=== PATIENT | male | born 1975 | race Caucasian/White ===

== ENCOUNTER 2025-05-14 18:13 | Emergency (ER) | payer BC, SELFPAY ==
[2025-05-14 18:14] VITALS: BMI 27.3
--- NOTE | 2025-05-14 18:23 | EKG_ITS ---
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
--- NOTE | 2025-05-14 18:38 | XR_ITS ---
EXAMINATION: AP chest single view TECHNIQUE: AP portable upright chest single view Date and time: May 14-5189 9 hours INDICATIONS: Chest pain shortness of breath today. FINDINGS: Normal heart size No lobar pneumonia or pulmonary edema. The osseous structures are intact IMPRESSION: No pneumonia or pulmonary edema
--- NOTE | 2025-05-14 18:39 | EDNOTE_ITS ---
<Statement entered by Maureen Rocha MD - 05/20/25 13:25> I discussed patient's findings patient's presented to the hospital acute chest pain ST segment elevation myocardial infarction inferior wall myocardial infarction with ST segment elevation recommended transfer to [facility] for emergency PCI discussed the case with emergency room physician agree with the treatment plan recommendations ED Chest Pain RME/HPI General Chief Complaint: Chest Pain Stated Complaint: SEVERE CHEST PAIN X1 HR Time Seen by Provider: 05/14/25 18:27 Arrival date/time: 05/14/25 18:13 Limitations: no limitations RME / HPI RME / HPI narrative: Patient is a 49-year-old male with medical history notable for gastric bypass, smoking tobacco is in the emergency primary concerns for chest pain. Symptoms started approximately 2 hours prior to arrival while sitting in a chair. Associated with pain at his left jaw. Denies nausea vomiting cough runny nose abdominal pain dysuria hematuria melena bloody stools. Denies drugs alcohol smoking. No recent travel, no lower extremity pain or swelling. Patient has never had chest pain like this before. Has never had an echocardiogram or stress test. Patient is allergic to penicillin gets a rash. Related Data Home Medications ?Medication ?Instructions ?Recorded ?Confirmed alprazolam 0.5 mg tablet 0.5 mg PO BID 02/26/2403/31 Held on 03/31/24. Instructions: Resume on 04/01/24. mirtazapine 30 mg tablet 30 mg PO HS 02/26/24 4 Held on 03/31/24. Instructions: Resume on 04/01/24. Allergies Allergy/AdvReac Type Severity Reaction Status Date / Time Penicillins Allergy Intermediate Rash Verified 05/14/25 18:23 ED Exam General Limitations: Present no limitations General appearance: Present alert and in no apparent distress Head Head exam: Present atraumatic and normocephalic Eye Eye exam: Present normal appearance and PERRL Neck Neck exam: Present normal inspection Chest Chest inspection: Present normal inspection and symmetric chest wall rise Respiratory Respiratory exam: Absent respiratory distress Cardiovascular Cardiovascular exam: Present regular rate Abdominal Exam Abdominal exam: Present soft; Absent distention or tenderness Extremities Exam Extremities exam: Present normal inspection Neurological Exam Neurological exam: Present alert, oriented X3 and CN II-XII intact Psychiatric Psychiatric exam: Present normal affect Skin Skin exam: Present warm and dry Course Quality Measures none Orders Category Date Time Status Scrap Hooker Q4H START 00 Care 05/14/25 18:44 Active EKG (ED ONLY) *Do not use* NOW Care 05/14/25 18:23 Completed Insert IV NOW Care 05/14/25 18:46 Active Notify provider NOW Care 05/14/25 18:51 Active Transfer to another facility [Transfer/Discharge] Stat Discharge 05/14/25 19:01 Active CXR [XR chest 1V] Stat Exams 05/14/25 18:38 Ordered EKG (ED Only) Stat Exams 05/14/25 18:23 Draft CBC Stat Lab 05/14/25 18:45 Received CMP [Comprehensive Metabolic Panel] Stat Lab 05/14/25 18:45 Received Drug Screen,Urine Stat Lab 05/14/25 18:38 Ordered PT [Prothrombin Time with INR] Stat Lab 05/14/25 18:45 Received Partial Thromboplastin Time AM DRAW Lab 05/16/25 05:00 Ordered Prothrombin Time with INR AM DRAW Lab 05/16/25 05:00 Ordered Troponin I Stat Lab 05/14/25 18:45 Received UA, C/S IF [Urinalysis, C/S if Indicated] Stat Lab 05/14/25 18:38 Ordered Aspirin Chew Med 05/14/25 18:38 Discontinued 162 mg PO X1 ONE Aspirin Chew Med 05/14/25 18:50 Discontinued 162 mg PO X1 ONE Heparin Inj Med 05/14/25 18:50 Discontinued 5,000 unit IV X1 ONE Nitroglycerin [Nitrostat 1/150] Med 05/14/25 18:44 Active 0.4 mg SL Q5MIN PRN Ticagrelor [Brilinta] Med 05/14/25 18:51 Discontinued 180 mg PO X1 ONE fentaNYL INJ [Sublimaze Inj] Med 05/14/25 18:45 Discontinued 50 mcg IVP X1 ONE Vital Signs Vital signs: Vital Signs Temperature 98 F 05/14/25 18:41 Pulse Rate 79 05/14/25 18:41 Respiratory Rate 18 05/14/25 18:41 Blood Pressure 143/93 H 05/14/25 18:41 Pulse Oximetry (%) 99 05/14/25 18:41 Oxygen Delivery Method Room Air 05/14/25 18:41 Chest Pain MDM Narrative MDM Narrative:: Patient is a 49-year-old male with medical history notable for gastric bypass, smoking that send Emergency Department with chest pain that started approximately 2 hours ago. Vital signs and exam as listed. Concern for ACS arrhythmia electrolyte abnormality among others. EKG performed at 1833 notable for sinus rhythm, ST elevations in lead II to III aVF as well as depressions in lead V1, V2, V3, V4 and V5. Concern the patient is having a STEMI. Immediately placed patient in resuscitation room, IV access obtained. Ordered sublingual nitroglycerin, fentanyl and aspirin. Will consult senior windows administrator. 6:44p discussed case with on-call senior windows administrator Dr. Rocha. Agrees that patient is having a STEMI. Recommends transfer to [facility]. Recommends aspirin 325, Brilinta 180, 5000 unit bolus of heparin. Initiated transfer with transfer nurse. Repeat EKG continues to demonstrate ST elevations in lead to 3 aVF, depressions in lead I, aVL, V1, V2, V3, V4 V5, worse than prior. [facility] transfer center spoke to our transfer center, accepted patient to go straight to the [facility]. 7:02p on reevaluation patient symptoms significantly improved. Received all ordered medications. Patient's sister Silva updated over the phone. Patient provided consent to update family Patient data External records reviewed:: [facility] previous records Clinical information provided by:: patient Social determinants that could affect healthcare access:: none Patient has the following chronic illnesses:: See MDM How is presenting disease/condition affected by chronic disease/condition?: exacerbated by Evaluation data The following diagnostics were reviewed and interpreted by me:: lab results and EKG tracing(s) Lab and/or radiology exams considered but not ordered:: None Interpretation Summary: See MDM Medications / Prescriptions Medications or Prescriptions considered but not ordered:: None Medication administrations:: Medication Administration History Nitroglycerin (Nitroglycerin 0.4 Mg Subl Btl #25) 0.4 mg SL Q5MIN PRN PRN Reason: CHEST PAIN Last Admin: 05/14/25 18:49 Dose: 0.4 mg Documented By: BD Discontinued Medications Aspirin (Aspirin 81 Mg Chew) 162 mg PO X1 ONE Stop: 05/14/25 18:39 Last Admin: 05/14/25 18:48 Dose: 162 mg Documented By: BY Aspirin (Aspirin 81 Mg Chew) 162 mg PO X1 ONE Stop: 05/14/25 18:51 Fentanyl Citrate (Fentanyl Cit Inj 50 Mcg/Ml Amp 2ml) 50 mcg IVP X1 ONE Stop: 05/14/25 18:46 Last Admin: 05/14/25 18:53 Dose: 50 mcg Documented By: BD Heparin Sodium (Porcine) (Heparin Sod Inj 5000 Unit/Ml Vial) 5,000 unit IV X1 ONE; Protocol Stop: 05/14/25 18:51 Ticagrelor (Ticagrelor 90 Mg Tablet) 180 mg PO X1 ONE Stop: 05/14/25 18:52 See above Consultations Consultation(s) initiated? (list below): Yes Diagnosis Most likely diagnosis given after review of the tests above:: STEMI, inferior IA Admission Indicated Admission indicated?: not indicated (Transfer) Admission Request Was there a request for admission?: No Disposition Plan Disposition Plan: Transfer Critical Care Time Critical Care Time Critical Care Time: Yes Total Critical Care Time (min.): 36 Attestation: Due to a high probability of clinically significant, life threatening deterioration, the patient required my highest level of preparedness to intervene emergently and I personally spent this critical care time directly and personally managing the patient. This critical care time included obtaining a history; examining the patient; pulse oximetry; ordering and review of studies; arranging urgent treatment with development of a management plan; evaluation of patient's response to treatment; frequent reassessment; and, discussions with other providers. This critical care time was performed to assess and manage the high probability of imminent, life-threatening deterioration that could result in multi-organ failure. It was exclusive of separately billable procedures and treating other patients and teaching time. Please see MDM section and the rest of the note for further information on patient assessment and treatment. Discharge Plan Plan Patient Disposition: Xfer Acute Care Fac Service Needed for Transfer: Cardiology Prescriptions/Referrals Prescriptions/Med Rec: No Action alprazolam 0.5 mg tablet 0.5 mg PO BID mirtazapine 30 mg tablet 30 mg PO HS Problem List Clinical Impression: ST elevation myocardial infarction (STEMI) Patient/Caregiver Discharge Instructions Print Language: Wallisian Stand Alone Forms: [facility] Award Info., Patient Portal Info Letter
[2025-05-14 18:41] VITALS: BP 143/93; PULSE 79; RESP 18; TEMP 36.6; O2SAT 99
[2025-05-14] MEDS: ASPIRIN 81 MG CHEW 162 MG PO ×2 (18:48→18:58)
[2025-05-14 18:49] VITALS: BP 145/98; PULSE 88
[2025-05-14] MEDS: NITROGLYCERIN 0.4 MG SUBL BTL #25 SL ×2 (18:49→19:04)
[2025-05-14] MEDS: fentaNYL CIT INJ 50 mCg/ML AMP 2ML IVP (18:53)
--- NOTE | 2025-05-14 18:54 | PC.CC ---
Addendum entered by Tamela Del Real RN 05/14/25 19:25: 1915: transfer packet taken to ED, however [facility] already created a transfer packet. Transport Unit at bedside. 1905: transport set up for stat. unit already enroute 1901: pt accepted by Dr. Rahul Brady. transfer packet created Original Note: 1854: received call from bedside nurse Eric, she will start pink form 1852: Spoke to Cornel mcpherson/ Antonino , facesheet and ekg sent. 1851: Received call from Dr. Lau for transfer to ID.
[2025-05-14] MEDS: TICAGRELOR 90 MG TABLET 180 MG PO (18:58)
[2025-05-14] MEDS: HEPARIN SOD INJ 5000 UNIT/ML VIAL IV (18:58)
[2025-05-14 19:00] LABS: Basophils # (Auto) 0.0 Thou/mm3 (0.0-0.2); Basophils % (Auto) 1 % (0-2.5); Eosinophils # (Auto) 0.2 Thou/mm3 (0.0-0.5); Eosinophils % (Auto) 2 % (0-10); Hematocrit 42.8 % (41.0-53.0); Hemoglobin 14.3 g/dL (13.5-16.0); Immature Granulocytes Auto 0.02 Thou/mm3 (0.00-0.00); Lymphocytes # (Auto) 1.9 Thou/mm3 (1.0-4.8); Lymphocytes % (Auto) 21 % (10-50); Mean Corpuscular HGB Conc 33.4 g/dl (31.0-37.0); Mean Corpuscular Hemoglobin 31.0 pg (25.0-35.0); Mean Corpuscular Volume 93 fL (80-100); Monocytes # (Auto) 0.6 Thou/mm3 (0.0-0.8); Monocytes % (Auto) 6 % (0-12); Neutrophils # (Auto) 6.1 Thou/mm3 (1.8-7.7); Neutrophils % (Auto) 70 % (37-80); Nucleated Red Blood Cell # 0.00 Thou/mm3 (0.00-0.00); Nucleated Red Blood Cell % 0 /100 WBC (0); Platelet Count 225 Thou/mm3 (140-440); RDW Standard Deviation 52.1 fL (35.1-43.9); Red Blood Count 4.62 Miln/mm3 (4.50-5.90); White Blood Count 8.7 Thou/mm3 (3.8-10.6)
--- NOTE | 2025-05-14 19:01 | PC.NURSE ---
accepting info from [facility] [place] [place], spoke with Cornel, accepting Dr. Kay, send patient straight to [facility] ER, nurse to nurse report [phone].
[2025-05-14 19:04] VITALS: BP 142/97; PULSE 91
[2025-05-14 19:10] VITALS: PULSE 83
[2025-05-14 19:15] LABS: INR 1.0 (0.9-1.3); Prothrombin Time 10.6 Seconds (9.0-12.2)
--- NOTE | 2025-05-14 19:18 | PC.NURSE ---
attemped to call nurse to nurse report but had no answer
[2025-05-14 19:24] LABS: Alanine Aminotransferase < 7 U/L (10-49); Albumin, Serum 4.7 gm/dL (3.5-5.0); Albumin/Globulin Ratio 1.5 (1.2-2.2); Alkaline Phosphatase 65 U/L (46-116); Anion Gap 7 (7-16); Aspartate Amino Transferase 15 U/L (0-34); BUN/Creatinine Ratio 11 Ratio (12-20); Bilirubin,Total 0.2 mg/dL (0.3-1.2); Blood Urea Nitrogen 10 mg/dL (9-23); Calcium 9.6 mg/dL (8.3-10.6); Calcium (Corrected) 9.6 mg/dL (8.5-10.1); Carbon Dioxide 28.9 mMol/L (20.0-31.0); Chloride 105 mMol/L (98-107); Creatinine (Component) 0.9 mg/dL (0.6-1.3); Estimated Creatinine Clearance 98.2 mL/min (>60); Globulin 3.1 gm/dL (2.3-3.5); Glucose 104 mg/dL (74-106); Osmolality,Calculated 280 (275-295); Potassium 4.2 mMol/L (3.4-5.1); Sodium 141 mMol/L (136-145); Total Protein 7.8 gm/dL (5.7-8.2); Troponin I 0.044 ng/mL (0.0-0.045); eGFR > 60 See Note
== END 2025-05-14 19:20 | disposition short-term general hospital (02) ==
PROVIDERS: Emergency Provider Emergency Medicine
DX: I21.3 ST elevation (STEMI) myocardial infarction of unspecified site (principal); Z87.891 Personal history of nicotine dependence
CPT/HCPCS: 36415; 71045; 80053; 80307; 81001; 84484; 85025; 85610; 93005; 96374; 99284; J1644; J3010; A9270